=== PATIENT | female | born 1980 | race Two or more races ===

== ENCOUNTER 2016-08-11 10:42 | Emergency (ER) | payer SELFPAY ==
[~2016-08-11] VITALS: Ht 139.7 cm; Wt 49.9 kg
--- NOTE | 2016-08-11 11:12 | [facility]gent Treatment Center Report ---
History of Present Issue Date/Time Seen by Provider 08/11/16 1111 Visit Reason Pt arrived:Walked Presenting Problem:PT BELIEVES SHE HAS THE FLU. PT STATES SHE HAS HAD COUGH, CONGESTION, FEVER AND BODYACHES FOR SEVERAL DAYS Location if Accident: Onset of symptoms date/time:/ or onset unknown for:MEDICAL HX UNKNOWN Have you (or family members/close friends) recently traveled outside the [facility]? N If Yes, where/when: Have you had exposure to infectious disease within the past month? TB? Other? Specify: c/o "I think I have the flu". Started w/ fever 101-102, ache, chills, cough ( initially productive yellow sputum but now dry), PND, rhinorrhea "about 5-6 days ago". Some SOA and wheezing at times but that resolved w/ father's albuterol inhaler. Most of the symptoms have resolved but cough still lingers. Exposed to flu prior to leaving [place] 1.5 weeks ago. Cousin had tested positive for flu. Source patient Exam Limitations no limitations ALLERGIES Coded Allergies: No Known Allergies (08/11/16) History Medical History General CAD? No Angina: No MS: No Hypertension? No Hyperlipidemia? No CHF? No DVT? No PE? No COPD? No Asthma? No Anemia? No GERD? No Gastric ulcers? No GI Bleed? No Hernia? No Thyroid Problems? No Hypothyroidism? No CVA? No Seizures? No Diabetes? No Renal Insuffiency? No UTI? No Stones? No BPH? No GB Disease: No Nephritic Syndrome? No Asplenia? No Hepatitis? No Sickle Cell Disease? No Arthritis? No Migraines? No Cataracts? No Glaucoma? No MRSA? No HIV? No TB? No Anxiety? No Depression? No Cancer? No More? No Immunization HX DT/Tetanus Unknown Surgical Hx Previous Surgery?N Social History Smoking Hx Smoker: Never Smoker Tobacco: No Alcohol Alcohol: No Review of Systems All Other Systems Reviewed and Negative Constitutional see HPI Eyes denies drainage ENT denies: ear pain, ear discharge, throat pain, throat swelling. Respiratory see HPI Cardiovascular denies chest pain, denies palpitations Gastrointestinal denies no symptoms reported Skin denies rash Psychiatric/Neurological denies headache Physical Exam Vital Signs Vital Signs Date Time Temp Pulse Resp B/P Pulse O2 O2 Flow FiO2 Ox Delivery Rate 08/11 1150 98.1 84 18 106/67 96 08/11 1103 98.1 84 18 106 96 General Appearance normal appearance, no apparent distress Eye Exam - bilateral eye normal exam Ear, Nose, Throat normal ENT inspection Neck non-tender, supple Respiratory Status No: respiratory distress (no cough in clinic), use of accessory muscles. Lung Sounds anterior: lungs clear. posterior: lungs clear. bilateral: lungs clear. Cardiovascular regular rate/rhythm, no peripheral edema, no murmur Neurologic alert Skin normal color, warm/dry Lymphatic no adenopathy (cervical) Medical Decision Making LABS/Meds/Orders Pt receiving controlled substance in ED? No Results/Orders Laboratory Tests 08/11/16 1108: Influenza Type A Ag NOT DETECTED, Influenza Type B Ag NOT DETECTED Orders Procedure Date/time Status [facility] FLU A,B 08/11 1108 Complete Departure Departure Time of Disposition 1145 Disposition DC Home or Self Care(routine) Clinical Impression Primary Impression: Influenza-like illness Condition STABLE Referrals NO REFERRAL Follow up IMMEDIATELY in ER or UTC for new or worsening symptoms OR no noticeable improvement over the next 48-72 hours. 911 for difficulty breathing * Patient provided with list of local physician office's accepting new patients. She is in the process of changing from [place] to [place] medicaid. Has been in contact with [facility] financial counselor. Patient Instructions DI for Influenza -- Adult Additional Instructions Your symptoms, exam and exposure STRONGLY suggest you are recovering from the flu. You should only continue to feel better each day and would not expect you to feel worse. Should not have any more fever and cough should continue to improve. If not, seek IMMEDIATE medical attention. *offered cough suppressant, pt declined. "not that bad". * Too late to start tamiflu. Most effective when started within 48 hours of symptoms onset. * Lots of rest * Increase fluids, water, gatorade, powerade, pedialyte if infant/toddler/child * Alternate tylenol and/or ibuprofen as discussed for fever/aches/pain as needed. ER if fever no less than 101 despite alternating tylenol and ibuprofen * You (or your child) are contagious until no fever, aches, chills x 24 hours without medication for symptoms. Discharge Counseling Counseled pt/family regarding diagnosis, test results, medications/RX, home care, follow up needs at 1209
--- NOTE | 2016-08-11 11:12 | Urgent Treatment Center Report ---
History of Present Issue Date/Time Seen by Provider 08/11/16 1111 Visit Reason Pt arrived:Walked Presenting Problem:PT BELIEVES SHE HAS THE FLU. PT STATES SHE HAS HAD COUGH, CONGESTION, FEVER AND BODYACHES FOR SEVERAL DAYS Location if Accident: Onset of symptoms date/time:/ or onset unknown for:MEDICAL HX UNKNOWN Have you (or family members/close friends) recently traveled outside the [facility]? N If Yes, where/when: Have you had exposure to infectious disease within the past month? TB? Other? Specify: c/o "I think I have the flu". Started w/ fever 101-102, ache, chills, cough ( initially productive yellow sputum but now dry), PND, rhinorrhea "about 5-6 days ago". Some SOA and wheezing at times but that resolved w/ father's albuterol inhaler. Most of the symptoms have resolved but cough still lingers. Exposed to flu prior to leaving [place] 1.5 weeks ago. Cousin had tested positive for flu. Source patient Exam Limitations no limitations ALLERGIES Coded Allergies: No Known Allergies (08/11/16) History Medical History General CAD? No Angina: No NC: No Hypertension? No Hyperlipidemia? No CHF? No DVT? No PE? No COPD? No Asthma? No Anemia? No GERD? No Gastric ulcers? No GI Bleed? No Hernia? No Thyroid Problems? No Hypothyroidism? No CVA? No Seizures? No Diabetes? No Renal Insuffiency? No UTI? No Stones? No BPH? No GB Disease: No Nephritic Syndrome? No Asplenia? No Hepatitis? No Sickle Cell Disease? No Arthritis? No Migraines? No Cataracts? No Glaucoma? No MRSA? No HIV? No TB? No Anxiety? No Depression? No Cancer? No More? No Immunization HX DT/Tetanus Unknown Surgical Hx Previous Surgery?N Social History Smoking Hx Smoker: Never Smoker Tobacco: No Alcohol Alcohol: No Review of Systems All Other Systems Reviewed and Negative Constitutional see HPI Eyes denies drainage ENT denies: ear pain, ear discharge, throat pain, throat swelling. Respiratory see HPI Cardiovascular denies chest pain, denies palpitations Gastrointestinal denies no symptoms reported Skin denies rash Psychiatric/Neurological denies headache Physical Exam Vital Signs Vital Signs Date Time Temp Pulse Resp B/P Pulse O2 O2 Flow FiO2 Ox Delivery Rate 08/11 1150 98.1 84 18 106/67 96 08/11 1103 98.1 84 18 106 96 General Appearance normal appearance, no apparent distress Eye Exam - bilateral eye normal exam Ear, Nose, Throat normal ENT inspection Neck non-tender, supple Respiratory Status No: respiratory distress (no cough in clinic), use of accessory muscles. Lung Sounds anterior: lungs clear. posterior: lungs clear. bilateral: lungs clear. Cardiovascular regular rate/rhythm, no peripheral edema, no murmur Neurologic alert Skin normal color, warm/dry Lymphatic no adenopathy (cervical) Medical Decision Making LABS/Meds/Orders Pt receiving controlled substance in ED? No Results/Orders Laboratory Tests 08/11/16 1108: Influenza Type A Ag NOT DETECTED, Influenza Type B Ag NOT DETECTED Orders Procedure Date/time Status [facility] FLU A,B 08/11 1108 Complete Departure Departure Time of Disposition 1145 Disposition DC Home or Self Care(routine) Clinical Impression Primary Impression: Influenza-like illness Condition STABLE Referrals NO REFERRAL Follow up IMMEDIATELY in ER or UTC for new or worsening symptoms OR no noticeable improvement over the next 48-72 hours. 911 for difficulty breathing * Patient provided with list of local physician office's accepting new patients. She is in the process of changing from [place] to [place] medicaid. Has been in contact with [employer] financial counselor. Patient Instructions DI for Influenza -- Adult Additional Instructions Your symptoms, exam and exposure STRONGLY suggest you are recovering from the flu. You should only continue to feel better each day and would not expect you to feel worse. Should not have any more fever and cough should continue to improve. If not, seek IMMEDIATE medical attention. *offered cough suppressant, pt declined. "not that bad". * Too late to start tamiflu. Most effective when started within 48 hours of symptoms onset. * Lots of rest * Increase fluids, water, gatorade, powerade, pedialyte if infant/toddler/child * Alternate tylenol and/or ibuprofen as discussed for fever/aches/pain as needed. ER if fever no less than 101 despite alternating tylenol and ibuprofen * You (or your child) are contagious until no fever, aches, chills x 24 hours without medication for symptoms. Discharge Counseling Counseled pt/family regarding diagnosis, test results, medications/RX, home care, follow up needs at 1209
[2016-08-11 11:50] VITALS: BP 106/67
== END 2016-08-11 11:50 | disposition home or self-care (01) ==
LOC: UTC 10:42
DX: J11.1 Influenza due to unidentified influenza virus with other respiratory manifestations (principal)